=== PATIENT | female | born 1995 ===

== ENCOUNTER 2021-03-28 14:33 | Outpatient (CLI) | payer OTHER ==
[~2021-03-28] VITALS: Ht 170.2 cm; Wt 98.3 kg
--- NOTE | 2021-03-28 14:35 | NUR ---
1435- 36.1 G6L3 arrives on unit with c/o ctx that started at 1000. Denies LOF or VB, positive for movement. Ambulatory to LDR4 with spouse. Changes into clean gown. 1446- EFM explained and placed. VS obtained. Assessment completed. 1450- SVE 4, JEN. 1510- Roles updated on pt. See physician notification.
[2021-03-28 14:50] VITALS: BP 133/84; PULSE 95; TEMP 98.1
[2021-03-28] MEDS ORDERED: PRENATAL TABLET PO (15:02)
[2021-03-28 15:20] VITALS: BP 118/66; PULSE 83
[2021-03-28 15:50] VITALS: BP 130/68; PULSE 78
--- NOTE | 2021-03-28 15:50 | NUR ---
1550- SVE unchanged. EFM off. 1601- Discharge instructions reviewed. Pt verbalizes understanding. Ambulatory off unit with spouse.
== END 2021-03-28 16:01 | disposition home or self-care (01) ==
LOC: LDRO 14:33
DX: O47.03 False labor before 37 completed weeks of gestation, third trimester (principal); Z3A.36 36 weeks gestation of pregnancy

== ENCOUNTER 2021-04-18 21:56 | Inpatient (IN) | payer OTHER ==
[~2021-04-18] VITALS: Ht 170.2 cm; Wt 99.5 kg
[~2021-04-18 21:56] MED LIST: PRENATAL TABLET PO
[2021-04-18 22:10] VITALS: TEMP 97.7
[2021-04-18] MEDS ORDERED: PROBIOTIC 2 BI1 EACH PO (22:23)
[2021-04-18 22:30] VITALS: BP 130/65; PULSE 80; TEMP 97.7
[2021-04-19] VITALS (25 sets, daily range): BP systolic 97–137; BP diastolic 44–88; PULSE 67–103; TEMP 97.6–98.3
[2021-04-19 00:23] LABS: BASO % 0.5 % (0.0-2.0); EOS # 0.1 K/mm3 (0.0-0.7); EOS % 0.9 % (0.0-4.0); GRAN # 5.9 K/mm3 (1.4-6.5); GRAN % 66.7 % (42.2-75.2); HEMOGLOBIN 11.9 g/dl (12.5-16.0); LYMPH # 2.1 K/mm3 (1.2-3.4); LYMPH % 24.3 % (20.0-51.0); MEAN CELL VOLUME 86 fl (80.0-100.0); MEAN CORPUSCULAR HEMOGLOBIN 30 pg (27-31); MEAN CORPUSCULAR HGB CONC 35 g/dl (33.0-37.0); MEAN PLATELET VOLUME 11.4 fl (7.4-10.4); MONO # 0.6 K/mm3 (0.1-0.6); MONO % 7.1 % (1.7-9.3); PLATELET COUNT 131 K/mm3 (130-400); RED BLOOD COUNT 3.97 M/mm3 (4.10-5.30); REDCELL DISTRIBUTION WIDTH-CV 12.4 % (11.5-14.5)
--- NOTE | 2021-04-19 00:30 | NUR ---
2200- 26 YO 39.1 WGA, ARRIVES TO OB UNIT FROM HOME AMBULATORY. RN ESCORTED TO ROOM. PT C/O POSSIBLE SROM. PT REPORTS SHE FELT SOME LOF AROUND 1400 TODAY AND PUT A PAD ON FROM [phone] AND DID NOT NOTICE MUCH FLUID BUT HAS HAD ANOTHER EPIDSODE OF LOF. ORIENTED TO ROOM AND INSTRUCTIONS GIVEN TO PT TO CHANGE. PT REPORTS +FM, UNSURE OF CTX, DENIES ANY VB. ACCOMPANIED BY SPOUSE, FRANCESCA. RECORDS REVIEWED. 0- EFM AND TOCO APPLIED. AFEBRILE. VSS. DENIES ANY PAIN AT THIS TIME. D/W PT ABOUT POC AND OBTAINING SAMPLE BY USING AMNIOTRACE SWAB AND/OR ROM +. TESTS EXPLAINED TO PT AND SHE DEMONSTRATES UNDERSTANDING. 0- AMNIOTRACE OBTAINED AND BLUISH/ GREENISH COLOR OBSERVED. ROM + OBTAINED AND SENT DOWN TO LAB. SVE PERFORMED BY THIS RN /-2, POSTERIOR, NO OBVIOUS OBSERVATION OF FLUID NOTED UPON CHECK. 2230- RT TILT 2232- LEFT LATERAL 2253- DR. CHAMPAGNE CALLED AND NOTIFIED OF PT STATUS AND ORDERS REC'D. 2330- PT UP TO BR 2345- PT NERVOUS ABOUT IV AND STATES THAT SHE PASSES OUT GENERALLY. RT WRIST #18G IV STARTED, SUCCESSFUL X1 ATTEMPT. PT TOLERATED WELL W/O ANY COMPLICATIONS. LABS DRAWN WITH IV START AND SENT DOWN TO LAB. 2347- DIFFICULTY TRACING FHTS, ADJUSTED EFM 2355- IV BOLUS STARTED 0000- CONSENTS REVIEWED WITH PT AND SPOUSE. ALL QUESTIONS ANSWERED. EDUCATION FOLDER GIVEN TO PT AND EXPLAINED AND AT BS. 0030- PITOCIN AUGMENTATION D/W PT AND SIG. OTHER. DEMONSTRATES UNDERSTANDING. PITOCIN INITIATED AT 2 MLU
[2021-04-19 00:32] LABS: HEMATOCRIT 34.1 % (37.0-47.0)
--- NOTE | 2021-04-19 03:00 | NUR ---
0255- SVE PERFORMED /2. PT REQUESTING EPIDURAL. QUYEN JEAN NOTIFIED PT WANTING EPIDURAL. PT UP TO BR. PT SWAYING AND MOANING THROUGH CONTRACTIONS. HORMONE SHAKES OBSERVED. PT COPING WELL W/ CTX. SPOUSE REMAINS AT BS AND SUPPORTIVE AND HELPFUL.
--- NOTE | 2021-04-19 03:30 | NUR ---
0330- DIFFICULTY TRACING FHTS CONTINOUSLY WHILE PT SITTING STRAIGHT UP FOR EPDIURAL PLACEMENT. INDETERMINATE BASELINE. DIFFICULTY TRACING CTX WITH TOCO WHILE PT SITTING UP WELL.
--- NOTE | 2021-04-19 04:05 | NUR ---
0310- IV BOLUS STARTED FOR EPIDURAL PLACMENT 0322- MIRANDA RECRUITMENT DIRECTOR AT BS 0324- PT SITTING UP ON SIDE OF BED FOR EPIDURAL PLACEMENT 0328- SINGLE SHOT DOSE GIVEN. SPO2 PROBE PLACED ON FINGER. DIFFICULTY TRACING FHTS WHILE SITTING UP FOR EPIDURAL. BP 119/57 P 88 100% ON RA 0330- BP 108/55 P 75 99% 0332- BP 124/60 P 75 100%. PT RT TILT 0340- BP 132/61 P 70 0342- BP 124/60 P 80 0344- BP 115/64 P 86 0346- BP 119/56 P 77 0350- BP 123/59 P 80 0352- BP 124/56 P 73
--- NOTE | 2021-04-19 06:00 | NUR ---
0518- RN CALLED TO ROOM BY PT'S . PT REPORTS SHE THINKS THE REST OF HER WATER BROKE. 0520- CLEAR, BLOODY FLUID NOTED.PT REPORTS FEELING MORE PRESSURE.COMPLETELY DILATED. ATTEMPTED TO STRAIGHT CATH PT BUT BABY TOO FAR DOWN. STARTING TRIAL PUSHING WITH PT WITH CTX. 0535- DR. CHAMPAGNE CALLED TO COME TO HOSPITAL FOR DELIVERY. RN REMAINS AT BS AND CONTINUES TO PUSH WITH PT WITH CTX. GOOD DESCENT WITH PUSHING. 0545- DR. CHAMPAGNE AT . 0550- OF VIABLE INFANT FEMALE. DRIED AND STIMULATED ON MOTHER'S ABDOMEN. PINK AND CRYING AND TAKEN TO WARMER PER MOTHER'S REQUEST. 0552- PL[facility] DELIVERED 0553- PITOCIN BOLUS INFUSING AT 333 ML/HR. 0600- SKIN TO SKIN WITH INFANT.
[2021-04-20 07:15] VITALS: BP 137/68; PULSE 70; TEMP 97.7
[2021-04-20] MEDS ORDERED: IBU800 M1 PO (08:40)
== END 2021-04-20 12:21 | disposition home or self-care (01) | DRG 807 ==
LOC: LDRO 21:56 → LDR 22:00 → LDRO 23:11 → OB 23:13 → LDR 23:13 → OB 04-19 10:00
PROVIDERS: Obstetrics & Gynecology; ADMIT Obstetrics & Gynecology
PROC: 10E0XZZ Delivery of Products of Conception, External Approach (ICD-10-PCS; principal; 2021-04-19)
PROC: 0KQM0ZZ Repair Perineum Muscle, Open Approach (ICD-10-PCS; 2021-04-19)
DX: O99.12 Other diseases of the blood and blood-forming organs and certain disorders involving the immune mechanism complicating childbirth (principal); Z37.0 Single live birth; D69.6 Thrombocytopenia, unspecified; O70.1 Second degree perineal laceration during delivery; Z3A.39 39 weeks gestation of pregnancy
CPT/HCPCS: J2590; J7120